=== PATIENT | female | born 1950 | race Caucasian/White ===

== ENCOUNTER 2017-08-20 19:15 | Observation (INO) | payer MEDICARE ==
[2017-08-20 21:19] LABS: #Basophils 0.1 thou/uL (0.0-0.2); #Eosinphils 0.1 thou/uL (0.0-0.7); #Lymphocytes 2.4 thou/uL (1.20-3.40); #Monocytes 0.4 thou/uL (0.11-0.59); #Neutrophils 3.3 thou/uL (1.40-6.50); %Basophils 1.1 % (0.0-1.0); %Lymphocytes 38.4 % (21.0-51.0); %Monocytes 6.7 % (0.0-10.0); Hematocrit 40.6 % (36.0-47.0); Mean Platelet Volume 6.9 fL (7.4-10.4); White Blood Cell (WBC) Count 6.3 thou/uL (4.8-10.8)
--- NOTE | 2017-08-20 21:41 | RAD ---
RADIOGRAPH CHEST 1 VIEW: 08/20/17 HISTORY: 67-year-old female with acute chest pain. FINDINGS: There is hyperinflation of the lungs, consistent with COPD. The thoracic aorta is tortuous and ectat ic. There is no evidence of air space density, pneumothorax, or pulmonary edema. The lateral costop hrenic angles are sharp. There is no cardiomegaly. There are sternotomy wires. There is ACDF hardware in the cervical spine. IMPRESSION: 1) No acute pulmonary findings. 2) Emphysema. 3) Ectasia of thoracic aorta. jason foss POS: ESTEBAN
[2017-08-20 21:44] LABS: Troponin I Less than 0.010 ng/mL (< 0.028)
[2017-08-20] MEDS ORDERED: Nitroglycerin 2% Ointment 1 INCH/1 GM Packet ONE (21:52)
[2017-08-20 21:57] LABS: ALT (SGPT) 9 U/L (8-55); AST (SGOT) 19 U/L (5-34); Alkaline Phosphatase 50 U/L (40-150); Anion Gap 12 mmol/L (10-20); BUN (Urea Nitrogen) 12 mg/dL (9.8-20.1); Bilirubin, Total 0.3 mg/dL (0.2-1.2); CK (CPK) 86 U/L (29-168); Calc. Creatinine Clearance 0 mL/min (70-130); Calcium 8.7 mg/dL (7.8-10.44); Carbon Dioxide 28 mmol/L (23-31); Chloride 105 mmol/L (98-107); Estimated GFR-MDRD 86; Globulin 2.8 g/dL (2.4-3.5); Protein, Total 6.7 g/dL (6.0-8.3)
[2017-08-20 23:23] VITALS: BMI 24.5
[2017-08-20] MEDS ORDERED: Ondansetron HCl/PF 4 MG/2 ML Vial IVP PRN (23:44)
[2017-08-20] MEDS ORDERED: Ondansetron ODT 4 MG TAB SL PRN (23:44)
[2017-08-21 00:56] LABS: Troponin I Less than 0.010 ng/mL (< 0.028)
[2017-08-21] MEDS ORDERED: HYDROcodone/Acetaminophen 5/325 mg Tablet PO PRN (02:06)
--- NOTE | 2017-08-21 02:13 | PDOC.EVN ---
Event Note - Event Note Event Note: [id number] 1. CHEST PAIN 2. HTN 3. HPL plan: see orders
--- NOTE | 2017-08-21 03:22 | HP ---
DATE OF ADMISSION: 08/21/2017 CHIEF COMPLAINT: Chest pain. HISTORY OF PRESENT ILLNESS: Patient is a 67-year-old female with past medical history of hypertensio n, hyperlipidemia, now came to the ER complaining of chest pain. Chest pain started all of sudden [place] bsternal pressure kind of pain. No aggravating factors, no relieving factors. Denies any radiation. Denies any fever, denies any chills, denies any nausea, denies any vomiting, denies any dizziness, denies any dyspnea. Denies any palpations. Chest pain is moderate in intensity. PAST MEDICAL HISTORY: As per HPI. PAST SURGICAL HISTORY: , hysterectomy. SOCIAL HISTORY: Positive for smoking, denies alcohol, denies any drugs. MEDICATIONS: Reviewed. FAMILY HISTORY: Denies any heart problems. REVIEW OF SYSTEMS: Constitutional: Denies any fever, denies any chills. Eyes: Denies any vision p roblems. Ears: Denies any hearing loss. Neck: Denies any neck pain. Cardiovascular: Positive fo r chest pain. Respiratory: Denies any cough, denies any sputum production. Cranial nerve system: Denies syncope. All other systems are reviewed and are negative. PHYSICAL EXAMINATION: CONSTITUTIONAL/VITAL SIGNS: At the time of H&P performed, blood pressure is 158/70, temperature 98.2 , heart rate 74, respirations 24, pulse ox 97%. GENERAL: The patient appears comfortable. HEENT: Pupils are equal, round, and reactive. Anterior nares patent. Nose normal. Ears normal. T eeth intact. Tongue is moist. NECK: Supple, no JVD. CARDIOVASCULAR: S1, S2 present. Regular rate and rhythm, no murmurs, no rubs, no gallops. RESPIRATORY SYSTEM: No wheezing, no rhonchi. Breath sounds bilaterally. ABDOMEN: Soft, nontender, no guarding, no organomegaly, no masses felt. MUSCULOSKELETAL: No edema. INTEGUMENT: No rashes seen. PSYCHIATRIC: Mood appropriate at this time. LABORATORY DATA: At the time of H and p performed white count 6.3, hemoglobin 13.5, platelet count i s 246, PTT 24.6. BMP showed sodium 141, potassium 4.4, chloride 105, CO2 is 20, BUN 12, creatinine 0 .68. Troponin less than 0.010, albumin 3.9. ASSESSMENT AND PLAN: The patient is a 67-year-old female. 1. Chest pain. Need to rule out Cardiac etiology. Plan to check cardiac enzymes. Plan to monitor the patient closely. 2. Hypertension. Monitor blood pressures. Continue home blood pressure meds. 3. History of hyperlipidemia. Continue statins. The case was discussed in detail with the patient. Patient is FULL CODE.
[2017-08-21] MEDS: Sodium Chloride 0.9% 1,000 ML IV SCH ×2 (04:09→17:02)
[2017-08-21] MEDS: Levothyroxine Sodium 100 MCG TAB PO SCH (04:21)
[2017-08-21 04:44] LABS: #Eosinphils 0.1 thou/uL (0.0-0.7); #Lymphocytes 2.1 thou/uL (1.20-3.40); #Monocytes 0.5 thou/uL (0.11-0.59); #Neutrophils 3.2 thou/uL (1.40-6.50); %Basophils 0.5 % (0.0-1.0); %Lymphocytes 35.1 % (21.0-51.0); %Monocytes 8.7 % (0.0-10.0); Hematocrit 41.7 % (36.0-47.0); Mean Platelet Volume 7.1 fL (7.4-10.4)
[2017-08-21 04:53] LABS: Anion Gap 10 mmol/L (10-20); BUN (Urea Nitrogen) 11 mg/dL (9.8-20.1); Calc. Creatinine Clearance 80 mL/min (70-130); Calcium 9.2 mg/dL (7.8-10.44); Carbon Dioxide 28 mmol/L (23-31); Chloride 107 mmol/L (98-107); Estimated GFR-MDRD 88
[2017-08-21 04:58] LABS: Troponin I Less than 0.010 ng/mL (< 0.028)
[2017-08-21] MEDS: Aspirin 325 MG TAB PO SCH (09:03)
[2017-08-21] MEDS: Metoprolol Tartrate 25 MG TAB PO SCH ×2 (09:04→19:47)
[2017-08-21] MEDS: Famotidine 20 MG TAB PO SCH ×2 (09:04→19:46)
[2017-08-21] MEDS: Heparin 5,000 UNITS/ML VIAL SC SCH ×3 (09:05→19:46)
[2017-08-21] MEDS: Acetaminophen 325 MG TAB PO PRN ×2 (09:47→17:04)
--- NOTE | 2017-08-21 20:20 | PRG ---
DATE OF SERVICE: 08/21/2017 SUBJECTIVE: The patient is seen and examined at bedside. She is doing well. She does not have ches t pain anymore. OBJECTIVE: VITAL SIGNS: Blood pressure is 96/49, pulse is 86, temperature 98.1, respiratory rate is 20, and O2 saturation is 94% on 2 liters. HEENT: Head is atraumatic, normocephalic. Eyes are PERRLA. Sclerae nonicteric. NECK: Supple. No JVD. LUNGS: Clear. HEART: S1, S2 normal, no S3, no S4. ABDOMEN: Soft and nontender. EXTREMITIES: No clubbing, cyanosis or edema. NEUROLOGIC: Examination is intact. LABORATORY DATA: Showed white count of 6.0, hemoglobin 13.2, hematocrit 41.7, platelet count is 217. Normal chemistry. Three sets of troponin I normal. IMPRESSION: 1. Chest pain in the setting of a patient with history of coronary artery disease and multiple stent placements. Troponins are normal. EKG showed some flipped T waves in V1 and V2 and otherwise was n ormal. [employer] is coming to make decision about the next step, whether she can be released home and follow up with her photogrammetric surveyor, Dr. Hardy, or if he will do cardiac catheterization with r adionuclide stress test. 2. Hypertension, chronic, stable. 3. History of hyperlipidemia, on statins.
[2017-08-21] MEDS ORDERED: traZODone HCl 50 MG TAB PO SCH (21:00)
[2017-08-22] MEDS: Sodium Chloride 0.9% 1,000 ML IV SCH (04:24)
[2017-08-22] MEDS: Levothyroxine Sodium 100 MCG TAB PO SCH (04:25)
--- NOTE | 2017-08-22 07:39 | CON ---
DATE OF CONSULTATION: 08/21/2017 HISTORY: Eloina Beltran is a 67-year-old white female, patient of Dr. Hardy. She has undergone CABG a nd multiple stent placements and continues to have episodes of frequent chest pains with multiple adm issions, multiple cardiac catheterizations. It has been felt that she was not a candidate for reoper ation due to very small vessels. It has also been felt that she is not a candidate for further inter ventions unless she has progression of disease in her saphenous vein graft. Her [place] vessels are v teddy small. Last night, she was sitting and had onset of central chest pressure. The pain was not pleuritic in n ature. It lasted 3-4 hours. She also has had some intermittent pain today. I noted that previously she had been on Ranexa 1000 mg b.i.d. when she was last discharged and when I asked her about that m edication, she told me she has never been on Ranexa. PAST MEDICAL HISTORY: Coronary artery disease, hypercholesterolemia, hypertension. She is unable to take statins due to muscle pain. She also has depression, GERD. PAST SURGICAL HISTORY: C-spine surgery, CABG, laparoscopic cholecystectomy, Mario fundoplication, a ppendectomy, and bilateral oophorectomy. HOME MEDICATIONS: Include aspirin 325 daily, Dulcolax 10 daily, levothyroxine 1000 daily, metoprolol 25 b.i.d., pantoprazole 20 daily, Zoloft 100 daily, trazodone 300 mg at bedtime. ALLERGIES: PROZAC, PENICILLIN, BETADINE, VIOXX, CELEBREX, STADOL. SOCIAL HISTORY: Smoked in the past, but no longer smokes. FAMILY HISTORY: Unremarkable. REVIEW OF SYSTEMS: A 12-point review of systems is remarkable. PHYSICAL EXAMINATION: VITAL SIGNS: 137/63, pulse 77. HEENT: PERRL. NECK: Supple. LUNGS: Chest is clear. CARDIAC: S1 and S2 are normal, without any S3, S4, or murmurs. ABDOMEN: Normal bowel sounds, without tenderness or organomegaly. EXTREMITIES: Revealed no clubbing, cyanosis, or edema. NEUROLOGIC: Grossly intact. MUSCULOSKELETAL: Revealed no palpable chest wall tenderness. LABORATORY DATA: EKG revealed normal sinus rhythm with probable septal infarct, no acute changes. H emoglobin 13.2, hematocrit 41.7, white count 6000, platelets 217,000. Sodium 141, potassium 3.8, chl oride 107, carbon dioxide 28, BUN 11, creatinine 0.69. Cardiac enzymes x3 are normal. IMPRESSION: 1. Atypical chest discomfort with 3-4 hours of chest pain with totally normal cardiac enzymes. 2. Status post coronary artery bypass graft and multiple stent implantation. When she was last disc harged, she was on Ranexa 1000 b.i.d., but she is quite adamant that she has never taken Ranexa in th e past. 3. Hypertension. 4. Hyperlipidemia, unable to take statins. 5. Former smoker. 6. Depression. PLAN: With 3-4 hours of continuous chest discomfort and negative cardiac enzymes, I am not even cert ain that this was cardiac pain. She will be restarted on Ranexa 500 mg b.i.d. and is still somewhat unclear to me that she was not taking this. It is not felt that catheterization would be beneficial at this time.
[2017-08-22] MEDS: Acetaminophen 325 MG TAB PO PRN (08:06)
[2017-08-22] MEDS: Heparin 5,000 UNITS/ML VIAL SC SCH (08:06)
[2017-08-22] MEDS: Aspirin 325 MG TAB PO SCH (08:06)
[2017-08-22] MEDS: Famotidine 20 MG TAB PO SCH (08:06)
[2017-08-22] MEDS: Metoprolol Tartrate 25 MG TAB PO SCH (08:06)
[2017-08-22 08:47] VITALS: BP 134/63; TEMP 98.2
--- NOTE | 2017-08-22 17:52 | DIS ---
DATE OF ADMISSION: 08/20/2017 DATE OF DISCHARGE: 08/22/2017 CONSULTANTS: Dr. Ray Samuel, Cardiology Service. FINAL DISCHARGE DIAGNOSES: 1. Chest pain, acute coronary syndrome was ruled out. 2. History of hyperlipidemia, on statin. 3. Hypertension, chronic, stable. 4. Coronary artery disease and status post multiple stent placements. HOSPITAL COURSE: The patient was a 67-year-old female who was admitted to the hospital wit h chest pain. She has a history of hypertension and hyperlipidemia. The onset of chest pain was [place] den. The pain was substernal, pressure kind of, without any aggravating factors without radiation. She denied any fever, chills, nausea, vomiting or diarrhea, dyspnea or palpitations. The chest pain was moderate in intensity. She was evaluated by emergency room when she was found to have white coun t of 6.3, hemoglobin 13.5, platelet count was 246, PTT 24.6. BMP showed sodium of 141, potassium 4.4 , chloride 105, CO2 20, BUN 12, creatinine 0.68. Troponin I was less than 0.010. The patient got ad mitted to the observation unit. She had additional 2 sets of cardiac enzymes which came back negativ e. Her EKG did not show any significant changes. The patient was seen by Dr. Samuel for Cardiolog y evaluation. He did not think that this was cardiac in nature, but he restarted her on Ranexa 500 m g twice a day and apparently her chest pain improved significantly to the point that she does not hav e any complaints to offer today. She is doing well. She is tolerating food. She is able to ambulat e without any discomfort. PHYSICAL EXAMINATION: VITAL SIGNS: Her blood pressure is 134/63, pulse is 68, temperature is 98.2, respiratory rate is 20, O2 saturation is 92%. LUNGS: Somewhat emphysematous. HEART: S1, S2 normal. No S3, no S4, no any murmur. ABDOMEN: Soft, nontender, bowel sounds are present, no organomegaly. The patient is discharged home on heart healthy diet. ACTIVITY: As tolerated. Her medications at the time of discharge were ranolazine which is Ranexa 500 mg twice a day. She maya l have a prescription for that. She will continue on aspirin 325 mg once a day, levothyroxine 100 mc g once a day, metoprolol 25 mg twice a day, pantoprazole 20 mg daily, sertraline 100 mg daily, [place] 10/325 mg 2 tablets q.6 hours p.r.n. as needed for the pain and Dulcolax 10 mg p.o. daily p.r.n. as n eeded. Also, she will continue her trazodone 100 mg tablets 2 tablets at bedtime. She will follow u p with Dr. Hardy in 1 week, her balloon seller, for further evaluation and she was seen on exam before s he is discharged and discharge time is less than 30 minutes.
--- NOTE | 2017-09-04 15:00 | EKG ---
Test Reason : CP Blood Pressure : / mmHG Vent. Rate : 060 BPM Atrial Rate : 060 BPM P-R Int : 156 ms QRS Dur : 078 ms QT Int : 432 ms P-R-T Axes : 037 011 027 degrees QTc Int : 432 ms Normal sinus rhythm Possible Left atrial enlargement Septal infarct , age undetermined Abnormal ECG Confirmed by IMMANUEL ORTEGA D.O. ([id number]), news editor TRUMAN DIALLO ([id number]) on 09/04/2017 2:59:29 PM Referred By: SHANNON Confirmed By:IMMANUEL ORTEGA D.O.
--- NOTE | 2017-09-04 15:13 | EKG ---
Test Reason : Blood Pressure : / mmHG Vent. Rate : 076 BPM Atrial Rate : 076 BPM P-R Int : 148 ms QRS Dur : 074 ms QT Int : 382 ms P-R-T Axes : 048 016 050 degrees QTc Int : 429 ms Normal sinus rhythm Possible Left atrial enlargement Septal infarct , age undetermined No STEMI Abnormal ECG Confirmed by IMMANUEL ORTEGA D.O. ([id number]), newspaper copy editor TRUMAN DIALLO ([id number]) on 09/04/2017 3:12:50 PM Referred By: Confirmed By:IMMANUEL ORTEGA D.O.
== END 2017-08-22 12:04 | disposition home or self-care (01) ==
LOC: ERS 19:15 → 2SW 21:55
PROVIDERS: ADMIT Internal Medicine; ATTEND Internal Medicine
DX: R07.89 Other chest pain (principal); E78.5 Hyperlipidemia, unspecified; I10 Essential (primary) hypertension; I25.10 Atherosclerotic heart disease of native coronary artery without angina pectoris; F17.200 Nicotine dependence, unspecified, uncomplicated; Z88.0 Allergy status to penicillin; Z88.1 Allergy status to other antibiotic agents; Z88.8 Allergy status to other drugs, medicaments and biological substances; Z91.041 Radiographic dye allergy status; Z91.048 Other nonmedicinal substance allergy status; Z90.710 Acquired absence of both cervix and uterus; Z95.5 Presence of coronary angioplasty implant and graft; Z98.890 Other specified postprocedural states
CPT/HCPCS: 71010; 80048; 80053; 82550; 82553; 83880; 84484 ×3; 85025 ×2; 85730; 93005; 96360; 96361 ×2; 99285; 99406; G0378; 36415; A4216; J1644

== ENCOUNTER 2017-09-02 08:53 | Inpatient (IN) | payer MEDICARE ==
[2017-09-02] MEDS ORDERED: Hydrocortisone Sod Succ/PF 100 mg/2 ml Vial ONE (09:18)
[2017-09-02] MEDS ORDERED: Heparin 10,000 UNITS/1 ML VIAL ONE (09:25)
[2017-09-02] MEDS ORDERED: Fentanyl 100 MCG/2 ML VIAL ONE ×2 (09:26→10:09)
[2017-09-02] MEDS ORDERED: Nitroglycerin 100MG/250ML BOT 250 ML ONE (09:44)
[2017-09-02] MEDS ORDERED: Aggrastat 12.5 MG/250 ML 250 ML ONE (10:35)
[2017-09-02] MEDS ORDERED: Iopamidol 370 76% 100 ML VIAL ONE (11:27)
[2017-09-02] MEDS ORDERED: Iopamidol 370 76% 50 ML VIAL FS ONE (11:27)
[2017-09-02] MEDS ORDERED: Amlodipine 5 MG TAB PO SCH (12:15)
[2017-09-02] MEDS ORDERED: Lisinopril 20 MG TAB PO SCH (12:15)
[2017-09-02] MEDS: Nitroglycerin 2% Ointment 1 INCH/1 GM Packet TOP SCH ×2 (12:17→21:37)
[2017-09-02 12:36] VITALS: BMI 25.4
[2017-09-02] MEDS ORDERED: Sodium Chloride 0.9% 1,000 ML IV SCH ×2 (12:49→20:02)
[2017-09-02] MEDS ORDERED: TICAGRELOR 90 MG TABLET PO SCH ×2 (12:49→21:00)
[2017-09-02] MEDS ORDERED: Aggrastat 12.5 MG/250 ML 250 ML IVPB SCH (13:15)
[2017-09-02] MEDS ORDERED: Fentanyl 100 MCG/2 ML VIAL SLOW IVP SCH (14:00)
[2017-09-02] MEDS ORDERED: Ondansetron HCl/PF 4 MG/2 ML Vial IVP SCH (14:15)
--- NOTE | 2017-09-02 14:25 | EKG ---
Test Reason : POST PTCA/STENT-RCA Blood Pressure : / mmHG Vent. Rate : 059 BPM Atrial Rate : 059 BPM P-R Int : 160 ms QRS Dur : 074 ms QT Int : 428 ms P-R-T Axes : 061 028 083 degrees QTc Int : [address] elevation consider inferolateral injury or acute infarct * ACUTE OK * Consider right ventricular involvement in acute inferior infarct Abnormal ECG When compared with ECG of 20-AUG-2017 21:44, (Unconfirmed) Criteria for Septal infarct are no longer Present ST elevation now present in Inferior leads Confirmed by DR. Yuko ABBOTT ([id number]) on 09/02/2017 2:24:06 PM Referred By: CHERRY Confirmed By:DR. Yuko ABBOTT
--- NOTE | 2017-09-02 15:53 | HP ---
DATE OF SERVICE: 09/02/2017 REASON FOR ADMISSION: Acute myocardial infarction. HISTORY OF PRESENT ILLNESS: Ms. Eloina Beltran is a 67-year-old patient of Dr. Marco A Hardy. The patient has a history of multiple stent implantation and also previous bypass surgery. The patie nt states she had the onset of severe substernal pain and pain going across her chest, beginning this morning. An ambulance was called and she was brought in by helicopter with ongoing chest pain and S T elevation in the inferior leads. PAST MEDICAL HISTORY: She has had multiple stents implanted. Please see previous notes. Has had mu ltiple cardiac catheterizations and she also had bypass surgery. Last cardiac catheterization that I see in the chart was 07/26/2014, found to have a patent internal mammary to the LAD diffusely diseas ed graft to the diagonal and patent stents in the right coronary artery. MEDICINES AT HOME: 1. She is taking aspirin. 2. Metoprolol, unknown dose. ALLERGIES: Intolerant to STATINS, some muscle pain. SOCIAL HISTORY: She said she continues to smoke. REVIEW OF SYSTEMS: Constitutional: No significant weight gain or loss. Vision: No changes. Heari ng: No changes. Pulmonary: Positive for shortness of breath. Cardiac: Positive for severe chest pain. Gastrointestinal: Positive for nausea and vomiting. Musculoskeletal: No unusual joint pains . Genitourinary: No burning with urination. PHYSICAL EXAMINATION: GENERAL: A critically ill-appearing elderly woman. VITAL SIGNS: Blood pressure 160/80, pulse 70s. EYES: Sclerae nonicteric. Mouth mucous membranes moist. NECK: Supple, no lymphadenopathy. LUNGS: Clear, no wheezing, rales or rhonchi. CARDIOVASCULAR: Normal S1, normal S2. There is no murmur, rub or gallop. ABDOMEN: Soft, nontender, no hepatosplenomegaly. EXTREMITIES: Warm, dry, no clubbing, cyanosis or edema. HEMATOLOGIC: No unusual bruising. SKIN: Warm and dry. LABORATORY AND X-RAY FINDINGS: EKG showed severe ST elevation in the inferior leads. ASSESSMENT: 1. Acute inferior myocardial infarction. 2. Multiple interventions and stent implantation in the past as outlined in the chart. PLAN: Proceed directly to the cardiac catheterization lab. The patient understood risk of stroke, h eart attack, iodine allergy, loss of blood supply to the leg or kidney. She understood and wished to proceed.
[2017-09-02] MEDS ORDERED: Fentanyl 100 MCG/2 ML VIAL SLOW IVP PRN (19:59)
[2017-09-02] MEDS ORDERED: HYDROcodone/Acetaminophen 10/325 mg Tablet PO PRN (20:00)
[2017-09-02] MEDS ORDERED: Aspirin 81 mg Enteric Coated Tablet PO SCH (20:15)
[2017-09-02] MEDS: Ondansetron HCl/PF 4 MG/2 ML Vial IVP PRN (20:22)
[2017-09-02] MEDS ORDERED: Carvedilol 3.125 MG TAB PO SCH (21:00)
[2017-09-02] MEDS: TICAGRELOR 90 MG TABLET PO SCH (21:37)
[2017-09-02] MEDS: traZODone HCl 50 MG TAB PO PRN (23:25)
[2017-09-03 04:40] LABS: #Eosinphils 0.1 thou/uL (0.0-0.7); #Lymphocytes 0.7 thou/uL (1.20-3.40); #Monocytes 0.3 thou/uL (0.11-0.59); #Neutrophils 5.5 thou/uL (1.40-6.50); %Basophils 0.3 % (0.0-1.0); %Eosinophils 0.8 % (0.0-10.0); %Lymphocytes 10.1 % (21.0-51.0); %Monocytes 4.4 % (0.0-10.0); %Neutrophils 84.4 % (42.0-75.0); Hemoglobin 12.7 g/dL (12.0-16.0); Mean Corpuscular HGB CONC 31.4 g/dL (32.0-36.0); Mean Platelet Volume 7.7 fL (7.4-10.4); Platelet Count 208 thou/uL (130-400); Red Blood Cell (RBC) Count 3.97 mill/uL (4.20-5.40); White Blood Cell (WBC) Count 6.5 thou/uL (4.8-10.8)
[2017-09-03] MEDS: Nitroglycerin 2% Ointment 1 INCH/1 GM Packet TOP SCH ×3 (05:31→22:04)
[2017-09-03] MEDS: Levothyroxine Sodium 100 MCG TAB PO SCH (05:31)
--- NOTE | 2017-09-03 08:22 | PDOC.CTH ---
<Jael Mcdowell - Last Filed: 09/03/17 08:18> Cardiology Progress Note - Subjective The pt seen and examined. No overnight events. No cardiac complaints. She was already up to chair this AM without any difficulties. - Objective Vital Signs Temp Pulse Resp Pulse Ox 09/03/17 07:42 98.3 F 72 18 96 09/03/17 03:00 98 F 09/02/17 23:00 98 F Admit Weight 143 lb 8.335 oz Weight 143 lb 8.335 oz 09/02/17 09/03/17 09/04/17 06:59 06:59 06:59 Intake Total 2495 Output Total 1175 Balance 1320 - Physical Examination General/Neuro: alert & oriented x3 Neck: no JVD present Lungs: CTA Heart: RRR Abdomen: soft Extremities: other: (No edema; about 1.5cm diameter hematoma@Rt fem; no mass to palpate) - Telemetry Telemetry Rhythm: SR - Labs Result Diagrams: 09/03/17 03:25 Troponin/CKMB Troponin I 10.800 ng/mL (< 0.028) H* 09/02/17 20:50 - Assessment/Plan 1. CAD w/ Hx of CABG in 2002 and multiple stents - S/p Stent x2 on 09/02/17; Stable; Start Coreg 3.125mg PO BID; on ASA and Brilinta; will check CMP tomorrow AM 2. HTN - start BBlocker; will adjust BP med as needed 3. Hyperlipidemia - The pt cannot tolerate Statin med due to myalgia; discussed with the pt about injectable cholesterol med 4. Current smoker - Smoking cessation education given to the pt MAR reviewed * Ok to tx to tele Review of Systems - Review of Systems Constitutional: reports: no symptoms reported EENTM: reports: no symptoms reported Respiratory: reports: no symptoms reported Cardiac (ROS): reports: no symptoms reported ABD/GI: reports: no symptoms reported : reports: no symptoms reported Musculoskeletal: reports: no symptoms reported Skin: reports: no symptoms reported <Reuben Hardy - Last Filed: 09/03/17 15:41> Cardiology Progress Note - Objective Vital Signs Temp Pulse Resp BP BP Pulse Ox 09/03/17 12:00 98.5 F 75 16 123/64 94 L 09/03/17 08:36 72 120/55 L 09/03/17 07:42 98.3 F 72 18 96 09/03/17 07:00 98 F Admit Weight 143 lb 8.335 oz Weight 143 lb 8.335 oz 09/02/17 09/03/17 09/04/17 06:59 06:59 06:59 Intake Total 2495 350 Output Total 1175 250 Balance 1320 100 - Labs Result Diagrams: 09/03/17 03:25 Troponin/CKMB CK-MB (CK-2) 19.8 ng/mL (0-6.6) H* 09/03/17 14:29 Troponin I 8.410 ng/mL (< 0.028) H* 09/03/17 14:29 - Assessment/Plan Pt. seen and eval. by me. I agree with the A/P by the HAIRSPRING ASSEMBLER. Chest clear,RRR. Prob. minimal damage with [place] yesterday. Peak Troponin I was 10. Continue present meds. We will see if she can start Repatha or Praluent for the elevated LDL cholesterol.
[2017-09-03] MEDS: TICAGRELOR 90 MG TABLET PO SCH ×2 (08:35→22:04)
[2017-09-03] MEDS: Lisinopril 20 MG TAB PO SCH (08:36)
[2017-09-03] MEDS: Amlodipine 5 MG TAB PO SCH (08:36)
[2017-09-03] MEDS: Carvedilol 3.125 MG TAB PO SCH ×2 (08:43→17:42)
[2017-09-03] MEDS ORDERED: Losartan 25 MG TAB PO SCH (09:00)
[2017-09-03] MEDS ORDERED: Lisinopril 20 MG TAB PO SCH (09:00)
[2017-09-03] MEDS: Ondansetron HCl/PF 4 MG/2 ML Vial IVP PRN (14:11)
[2017-09-03 15:19] LABS: CKMB 19.8 ng/mL (0-6.6)
--- NOTE | 2017-09-03 16:59 | EKG ---
Test Reason : Blood Pressure : / mmHG Vent. Rate : 055 BPM Atrial Rate : 055 BPM P-R Int : 156 ms QRS Dur : 072 ms QT Int : 442 ms P-R-T Axes : 049 019 053 degrees QTc Int : 422 ms Sinus bradycardia Otherwise normal ECG When compared with ECG of 02-SEP-2017 11:38, ST no longer elevated in Inferior leads Confirmed by DR. Yuko ABBOTT ([id number]) on 09/03/2017 4:59:37 PM Referred By: CHERRY Confirmed By:DR. Yuko ABBOTT
--- NOTE | 2017-09-03 17:02 | EKG ---
Test Reason : Blood Pressure : / mmHG Vent. Rate : 068 BPM Atrial Rate : 068 BPM P-R Int : 166 ms QRS Dur : 076 ms QT Int : 414 ms P-R-T Axes : 050 006 -31 degrees QTc Int : 440 ms Normal sinus rhythm Cannot rule out Inferior infarct , age undetermined Abnormal ECG When compared with ECG of 02-SEP-2017 15:34, (Unconfirmed) Minimal criteria for Inferior infarct are now Present T wave inversion now evident in Inferior leads Nonspecific T wave abnormality now evident in Lateral leads Confirmed by DR. Yuko ABBOTT ([id number]) on 09/03/2017 5:02:39 PM Referred By: CHERRY Confirmed By:DR. Yuko ABBOTT
[2017-09-03] MEDS: traZODone HCl 50 MG TAB PO PRN (22:05)
[2017-09-04] MEDS: Levothyroxine Sodium 100 MCG TAB PO SCH (05:36)
[2017-09-04] MEDS: Nitroglycerin 2% Ointment 1 INCH/1 GM Packet TOP SCH ×3 (05:36→21:49)
[2017-09-04 05:59] LABS: ALT (SGPT) 13 U/L (8-55); AST (SGOT) 41 U/L (5-34); Albumin 3.2 g/dL (3.4-4.8); Alkaline Phosphatase 42 U/L (40-150); Anion Gap 12 mmol/L (10-20); BUN (Urea Nitrogen) 7 mg/dL (9.8-20.1); Bilirubin, Total 0.2 mg/dL (0.2-1.2); Calc. Creatinine Clearance 85 mL/min (70-130); Calcium 8.7 mg/dL (7.8-10.44); Carbon Dioxide 24 mmol/L (23-31); Chloride 109 mmol/L (98-107); Estimated GFR-MDRD Greater than 90; Globulin 2.5 g/dL (2.4-3.5); Glucose 86 mg/dL (80-115); Protein, Total 5.7 g/dL (6.0-8.3); Sodium 141 mmol/L (136-145)
[2017-09-04 06:05] LABS: Critical Call Chem Troponin I RESULT DECREASING; Troponin I 5.685 ng/mL (< 0.028)
[2017-09-04] MEDS: Carvedilol 3.125 MG TAB PO SCH ×2 (08:51→17:34)
[2017-09-04] MEDS: TICAGRELOR 90 MG TABLET PO SCH ×2 (08:52→20:55)
[2017-09-04] MEDS: Ondansetron HCl/PF 4 MG/2 ML Vial IVP PRN ×2 (10:00→16:14)
[2017-09-04] MEDS: Amlodipine 5 MG TAB PO SCH (10:44)
[2017-09-04] MEDS: Lisinopril 20 MG TAB PO SCH (12:12)
[2017-09-04] MEDS: Acetaminophen 325 MG TAB PO PRN ×2 (14:47→21:49)
[2017-09-04] MEDS: traZODone HCl 50 MG TAB PO PRN (20:55)
[2017-09-04] MEDS ORDERED: Lorazepam 2 MG/ML VIAL SLOW IVP SCH (21:00)
[2017-09-05] MEDS: Levothyroxine Sodium 100 MCG TAB PO SCH (05:29)
[2017-09-05] MEDS: Nitroglycerin 2% Ointment 1 INCH/1 GM Packet TOP SCH (05:29)
[2017-09-05] MEDS: TICAGRELOR 90 MG TABLET PO SCH (08:27)
[2017-09-05] MEDS: Carvedilol 3.125 MG TAB PO SCH (08:27)
[2017-09-05] MEDS ORDERED: Lisinopril 20 MG TAB PO SCH (09:00)
[2017-09-05] MEDS ORDERED: Lisinopril 5 MG TAB PO SCH (09:00)
--- NOTE | 2017-09-05 09:36 | PDOC.CTH ---
Cardiology Progress Note - Subjective The pt seen and examined. She had Sharp and heavy like CP to her Chest which radiated from Rt to Lt chest and numbness to her Lt shoulder; she denied any other cardiac complains during the episode. The pt reported that the pain improved with NTG patch. She denied any CP or numbness to her LUE at this moment. - Objective Vital Signs Temp Pulse Resp BP BP Pulse Ox 09/05/17 08:27 73 121/80 09/05/17 08:00 97.6 F 73 20 121/80 94 L 09/05/17 04:05 97.8 F 80 16 119/72 92 L 09/05/17 00:02 98.1 F 73 20 123/57 L 98 Admit Weight 143 lb 8.335 oz Weight 142 lb 8 oz 09/04/17 09/05/17 09/06/17 06:59 06:59 06:59 Intake Total 590 1875 Output Total 250 Balance 340 1875 - Physical Examination General/Neuro: alert & oriented x3 Neck: no JVD present Lungs: CTA Heart: RRR Abdomen: soft Extremities: other: (No edema) - Telemetry Telemetry Rhythm: SR - Labs Result Diagrams: 09/03/17 03:25 09/04/17 05:11 Troponin/CKMB CK-MB (CK-2) 19.8 ng/mL (0-6.6) H* 09/03/17 14:29 Troponin I 5.685 ng/mL (< 0.028) H* 09/04/17 05:11 - Assessment/Plan 1. CAD w/ Hx of CABG in 2002 and multiple stents - S/p Stent x2 on 09/02/17; No Chest pain with NTG patch; on BBlocker, ALYSSA, ASA, and Brilinta; cont. monitor on tele 2. HTN - stable with current medication; cont. monitor 3. Hyperlipidemia - The pt cannot tolerate Statin med due to myalgia; again discussed with the pt about injectable cholesterol med, but the pt concerned of the cost of the medication 4. Current smoker - Smoking cessation education given to the pt again today; however, at this moment, she does not want smoking cessation. MAR reviewed * From Cardiac standpoint, the pt is stable to discharge to home; The pt will f/ u with Dr Hardy' office within 1-2 wks and we will discuss more about injectable cholesterol medication. Discharge cardiac related med: BBlocker, ALYSSA, ASA, and Brilinta, no statin due to side effect Review of Systems - Review of Systems Constitutional: reports: no symptoms reported EENTM: reports: no symptoms reported Respiratory: reports: no symptoms reported Cardiac (ROS): reports: no symptoms reported ABD/GI: reports: no symptoms reported : reports: no symptoms reported Musculoskeletal: reports: no symptoms reported Skin: reports: no symptoms reported Neurological: reports: no symptoms reported
[2017-09-05] MEDS: Ondansetron HCl/PF 4 MG/2 ML Vial IVP PRN (11:21)
[2017-09-05 11:50] VITALS: TEMP 98.5
[2017-09-05 13:00] VITALS: BP 110/68
--- NOTE | 2017-09-06 00:07 | DIS ---
Jael Mcdowell PEDIATRIC ONCOLOGY NURSE, Dr. Hardy' nurse practitioner. DATE OF ADMISSION: 09/02/2017 DATE OF DISCHARGE: 09/05/2017 DISCHARGE DISPOSITION: Home. PRIMARY DISCHARGE DIAGNOSIS: Acute inferior myocardial infarction and multiple stent implantation. SECONDARY DISCHARGE DIAGNOSES: 1. Hypertension. 2. Hyperlipidemia. 3. Current smoker. PRIMARY PROCEDURE: Status post cardiac catheterization with PCI x2 on 2016. DISCHARGE MEDICATIONS: Carvedilol 3.125 mg twice a day, lisinopril 5 mg 1 tablet once a day, nitroglycerin paste one inch daily (12 hours at the daytime and remove at the night), Brilinta 90 mg p.o. twice a day. CONTRAINDICATION OF THE MEDICATION: None. CODE STATUS: FULL CODE. DISCHARGE PLAN: The patient will follow up with Dr. Hardy' office within 1-2 weeks. HOSPITAL COURSE: Ms. Beltran is a 67-year-old female with a significant history of multiple stent implantations and also previous bypass surgery. The patient presented to the emergency department due to severe substernal pain, which radiated to left upper extremities. The patient underwent cardiac catheterization and PCI x2 on 09/02/2017. After the stent placements, the patient complained of intermediate chest pain/discomfort to her left chest and numbness to the bilateral arms, which improved by nitroglycerin paste. The patient will be discharged with nitroglycerin paste, which she requires 12 hours in the daytime and removed at night. The patient was strongly recommended smoking cessation due to multiple history of stents and chest discomfort, and follow up with her primary care doctor and also Dr. Hardy' office as instructed. The patient was seen and examined at the bedside today. Please see our progress note from today for further details. MTDD
== END 2017-09-05 14:21 | disposition home or self-care (01) | DRG 247 ==
LOC: CCL 08:53 → CCU 11:39 → 2SE 09-03 09:53
PROVIDERS: ADMIT Internal Medicine Cardiovascular Disease; ATTEND Internal Medicine Cardiovascular Disease
PROC: 027035Z Dilation of Coronary Artery, One Artery with Two Drug-eluting Intraluminal Devices, Percutaneous Approach (ICD-10-PCS; principal; 2017-09-02)
PROC: B240ZZ3 Ultrasonography of Single Coronary Artery, Intravascular (ICD-10-PCS; 2017-09-02)
PROC: 4A023N7 Measurement of Cardiac Sampling and Pressure, Left Heart, Percutaneous Approach (ICD-10-PCS; 2017-09-02)
PROC: B2121ZZ Fluoroscopy of Single Coronary Artery Bypass Graft using Low Osmolar Contrast (ICD-10-PCS; 2017-09-02)
PROC: B2181ZZ Fluoroscopy of Left Internal Mammary Bypass Graft using Low Osmolar Contrast (ICD-10-PCS; 2017-09-02)
PROC: B2111ZZ Fluoroscopy of Multiple Coronary Arteries using Low Osmolar Contrast (ICD-10-PCS; 2017-09-02)
PROC: B2151ZZ Fluoroscopy of Left Heart using Low Osmolar Contrast (ICD-10-PCS; 2017-09-02)
PROC: 3E033PZ Introduction of Platelet Inhibitor into Peripheral Vein, Percutaneous Approach (ICD-10-PCS; 2017-09-02)
DX: I21.11 ST elevation (STEMI) myocardial infarction involving right coronary artery (principal); I25.810 Atherosclerosis of coronary artery bypass graft(s) without angina pectoris; Z95.1 Presence of aortocoronary bypass graft; I25.10 Atherosclerotic heart disease of native coronary artery without angina pectoris; Z95.5 Presence of coronary angioplasty implant and graft; I10 Essential (primary) hypertension; E78.5 Hyperlipidemia, unspecified; F17.210 Nicotine dependence, cigarettes, uncomplicated
CPT/HCPCS: 36415; 37212; 76942; 80053; 82553; 84484; 85025; 92928; 92978; 93005; 93010; 93459; 93798; C1753; C1769; C1874; C1887; C9600; J1644; J1720; J2060; J2405; J3010; J3246

== ENCOUNTER 2021-06-17 19:56 | Inpatient (IN) | payer MEDICARE ==
[~2021-06-17 19:56] MED LIST: Iopamidol-370 76% 500 ML 1 ML ONE
[2021-06-17 21:08] LABS: Hemoglobin 13.8 g/dL (12.0-16.0); Mean Corpuscular HGB CONC 32.5 g/dL (32.0-36.0); Mean Corpuscular Hemoglobin 32.9 pg (27.0-31.0); Mean Platelet Volume 7.8 fL (7.4-10.4); Platelet Count 323 thou/uL (130-400); RBC Distribution Width 12.7 % (11.5-14.5); Red Blood Cell (RBC) Count 4.19 mill/uL (4.20-5.40); White Blood Cell (WBC) Count 18.5 thou/uL (4.8-10.8)
[2021-06-17 21:31] LABS: Band 19 % (5-11); Lymphocytes 9 % (21-51); MDiff Complete? YES; Monocytes 4 % (0-10); Neutrophil 68 % (42-75)
[2021-06-17 21:47] LABS: CKMB 0.8 ng/mL (0-6.6)
[2021-06-17] MEDS ORDERED: cefTRIAXone\\ROCEPHIN 2 GM VIAL ONE (21:50)
[2021-06-17] MEDS ORDERED: Ondansetron ODT 4 MG TAB ONE (21:50)
[2021-06-17 22:50] LABS: Albumin 2.8 g/dL (3.4-4.8)
[2021-06-17 22:51] LABS: Chloride 97 mmol/L (98-107); Potassium 3.7 mmol/L (3.5-5.1); Sodium 140 mmol/L (136-145)
[2021-06-17 22:52] LABS: Calcium 8.6 mg/dL (7.8-10.44); Glucose 98 mg/dL (83-110)
[2021-06-17 22:53] LABS: Globulin 3.5 g/dL (2.4-3.5); Protein, Total 6.3 g/dL (5.8-8.1)
[2021-06-17 22:54] LABS: Anion Gap 17 mmol/L (10-20); Bilirubin, Total 0.4 mg/dL (0.2-1.2); Carbon Dioxide 30 mmol/L (23-31)
[2021-06-17 22:55] LABS: Alkaline Phosphatase 84 U/L (40-110)
[2021-06-17 22:56] LABS: Calc. Creatinine Clearance 0 mL/min (70-130)
[2021-06-17 22:57] LABS: BUN (Urea Nitrogen) 17 mg/dL (9.8-20.1)
[2021-06-17 22:58] LABS: ALT (SGPT) 15 U/L (8-55); AST (SGOT) 32 U/L (5-34)
[2021-06-17] MEDS ORDERED: Enoxaparin Sodium 60 MG/0.6 ML SYRINGE ONE (23:05)
[2021-06-17] MEDS ORDERED: Diltiazem 125 MG/25 ML ONE (23:06)
[2021-06-17 23:09] LABS: SARS-CoV-2 NAA Rapid Test Not Detected (NotDetected)
[2021-06-17 23:40] LABS: Bacteria/HPF 4+ HPF (None Seen); Bilirubin Negative (Negative); Blood, Urine 1+ (Negative); Clarity Turbid (Clear); Glucose, Urine (Dipstick) Normal (Negative); Ketone, Urine Negative (Negative); Leukocyte 75 Leu/uL (Negative); Nitrite Negative (Negative); Protein, Urine (Dipstick) 100 mg/dL (Neg-Trace); Specific Gravity, Urine 1.026 (1.002-1.036); Squamous Epithelial 0-3 HPF (0-3); pH, Urine 5.5 (5.0-9.0)
[2021-06-18] MEDS ORDERED: Ondansetron ODT 4 MG TAB PO PRN (00:16)
[2021-06-18] MEDS ORDERED: Acetaminophen 650 MG Suppository PR PRN (00:16)
[2021-06-18] MEDS ORDERED: Acetaminophen 325 MG TAB PO PRN (00:16)
[2021-06-18] MEDS ORDERED: Ondansetron PF 4 MG/2 ML Vial IVP PRN (00:16)
[2021-06-18 00:17] LABS: Lactic Acid 1.8 mmol/L (0.5-2.2)
[2021-06-18 00:27] LABS: Troponin I Less than 0.010 ng/mL (< 0.028)
[2021-06-18] MEDS ORDERED: Aspirin Chewable 81 MG TAB PO SCH (01:00)
[2021-06-18] MEDS ORDERED: Diltiazem 125 MG in Sodium Chloride 0.9% 100 ML IVPB SCH (01:45)
[2021-06-18] MEDS ORDERED: methylPREDNISolone Sod Succ 40 MG VIAL IVP SCH (02:30)
[2021-06-18] MEDS ORDERED: Aspirin Chewable 81 MG TAB ONE (03:07)
[2021-06-18 03:18] LABS: #Lymphocytes 0.8 thou/uL (1.20-3.40); #Monocytes 0.7 thou/uL (0.11-0.59); #Neutrophils 17.4 thou/uL (1.40-6.50); %Eosinophils 0.1 % (0.0-10.0); %Lymphocytes 4.1 % (21.0-51.0); %Monocytes 3.9 % (0.0-10.0); %Neutrophils 91.9 % (42.0-75.0); Hemoglobin 11.9 g/dL (12.0-16.0); Mean Corpuscular HGB CONC 31.8 g/dL (32.0-36.0); Mean Corpuscular Hemoglobin 32.3 pg (27.0-31.0); Mean Platelet Volume 8.1 fL (7.4-10.4); Platelet Count 241 thou/uL (130-400); RBC Distribution Width 12.5 % (11.5-14.5); Red Blood Cell (RBC) Count 3.69 mill/uL (4.20-5.40)
[2021-06-18 03:43] LABS: Troponin I 0.011 ng/mL (< 0.028)
[2021-06-18 03:56] LABS: Anion Gap 18 mmol/L (10-20); BUN (Urea Nitrogen) 15 mg/dL (9.8-20.1); Calc. Creatinine Clearance 0 mL/min (70-130); Calcium 7.3 mg/dL (7.8-10.44); Carbon Dioxide 27 mmol/L (23-31); Chloride 101 mmol/L (98-107); Glucose 104 mg/dL (83-110); Potassium 3.7 mmol/L (3.5-5.1); Sodium 142 mmol/L (136-145)
[2021-06-18] MEDS: Aspirin Chewable 81 MG TAB PO SCH (08:26)
[2021-06-18] MEDS: methylPREDNISolone Sod Succ 40 MG VIAL IVP SCH (08:26)
[2021-06-18] MEDS ORDERED: FLU VACC QS2021-22(65YR UP)/PF 240 MCG/0.7 ML SYRINGE IM ONE (09:00)
[2021-06-18] MEDS ORDERED: Enoxaparin Sodium 40 MG/0.4 ML SYRINGE SC SCH (09:00)
[2021-06-18] MEDS ORDERED: Budesonide 0.25 MG/2 ML NEB INH SCH (13:00)
[2021-06-18] MEDS: Carvedilol 3.125 MG TAB PO SCH (17:10)
[2021-06-18] MEDS: Budesonide 0.25 MG/2 ML NEB INH SCH (18:25)
[2021-06-18] MEDS: Atorvastatin Calcium 40 MG TAB PO SCH (20:33)
[2021-06-18] MEDS: Donepezil HCl 5 MG TAB PO SCH (20:33)
[2021-06-18] MEDS: cefTRIAXone\\ROCEPHIN 1 GM in Sodium Chloride 0.9% 100 ML IVPB SCH (20:33)
[2021-06-18] MEDS: traZODone HCl 50 MG TAB PO SCH (20:34)
[2021-06-18] MEDS ORDERED: TRAZODONE HCL 100 MG PO SCH (21:00)
[2021-06-19 04:48] VITALS: BMI 23.9
[2021-06-19] MEDS: Clopidogrel Bisulfate 75 MG TAB PO SCH (08:38)
[2021-06-19] MEDS: methylPREDNISolone Sod Succ 40 MG VIAL IVP SCH ×3 (08:38→23:11)
[2021-06-19] MEDS: Levothyroxine Sodium 100 MCG TAB PO SCH (08:38)
[2021-06-19] MEDS: Aspirin Chewable 81 MG TAB PO SCH (08:38)
[2021-06-19] MEDS: Budesonide 0.25 MG/2 ML NEB INH SCH ×2 (09:02→18:52)
[2021-06-19] MEDS: Lisinopril 5 MG TAB PO SCH (10:06)
[2021-06-19] MEDS: Carvedilol 3.125 MG TAB PO SCH ×2 (10:06→17:41)
[2021-06-19] MEDS: traZODone HCl 50 MG TAB PO SCH (20:04)
[2021-06-19] MEDS: Atorvastatin Calcium 40 MG TAB PO SCH (20:05)
[2021-06-19] MEDS: cefTRIAXone\\ROCEPHIN 1 GM in Sodium Chloride 0.9% 100 ML IVPB SCH (20:05)
[2021-06-19] MEDS: Donepezil HCl 5 MG TAB PO SCH (20:05)
[2021-06-20] MEDS: methylPREDNISolone Sod Succ 40 MG VIAL IVP SCH ×2 (06:03→11:45)
[2021-06-20] MEDS: Budesonide 0.25 MG/2 ML NEB INH SCH ×2 (07:13→18:45)
[2021-06-20 07:53] LABS: Hemoglobin 13.3 g/dL (12.0-16.0); Mean Corpuscular HGB CONC 31.6 g/dL (32.0-36.0); Mean Corpuscular Hemoglobin 32.5 pg (27.0-31.0); Mean Platelet Volume 7.4 fL (7.4-10.4); Platelet Count 362 thou/uL (130-400); RBC Distribution Width 12.6 % (11.5-14.5); Red Blood Cell (RBC) Count 4.11 mill/uL (4.20-5.40); White Blood Cell (WBC) Count 13.8 thou/uL (4.8-10.8)
[2021-06-20 08:04] LABS: Anion Gap 15 mmol/L (10-20); BUN (Urea Nitrogen) 14 mg/dL (9.8-20.1); Calc. Creatinine Clearance 77 mL/min (70-130); Calcium 8.5 mg/dL (7.8-10.44); Carbon Dioxide 30 mmol/L (23-31); Chloride 98 mmol/L (98-107); Glucose 197 mg/dL (83-110); Sodium 139 mmol/L (136-145)
[2021-06-20 08:24] LABS: Band 4 % (5-11); Lymphocytes 4 % (21-51); MDiff Complete? YES; Macrocytosis SLIGHT = 6-15 cells (100X) (0-5/hpf); Monocytes 7 % (0-10); Neutrophil 85 % (42-75); Platelet Morphology Comment Appears Adequate; Polychromasia SLIGHT = 2-3 cells (100X) (0-2/hpf)
[2021-06-20] MEDS: Levothyroxine Sodium 100 MCG TAB PO SCH (08:35)
[2021-06-20] MEDS: Carvedilol 3.125 MG TAB PO SCH ×2 (08:35→16:26)
[2021-06-20] MEDS: Lisinopril 5 MG TAB PO SCH (08:36)
[2021-06-20] MEDS: Aspirin Chewable 81 MG TAB PO SCH (08:36)
[2021-06-20] MEDS: Clopidogrel Bisulfate 75 MG TAB PO SCH (08:36)
[2021-06-20] MEDS: traZODone HCl 50 MG TAB PO SCH (20:20)
[2021-06-20] MEDS: Donepezil HCl 5 MG TAB PO SCH (20:21)
[2021-06-20] MEDS: Cefuroxime Axetil 250 MG TAB PO SCH (20:21)
[2021-06-20] MEDS: Atorvastatin Calcium 40 MG TAB PO SCH (20:21)
[2021-06-20] MEDS: Bisacodyl 5 MG TAB PO PRN (20:28)
[2021-06-21 05:32] LABS: Anion Gap 14 mmol/L (10-20); BUN (Urea Nitrogen) 13 mg/dL (9.8-20.1); Calc. Creatinine Clearance 73 mL/min (70-130); Calcium 8.3 mg/dL (7.8-10.44); Carbon Dioxide 31 mmol/L (23-31); Chloride 96 mmol/L (98-107); Glucose 77 mg/dL (83-110); Potassium 4.3 mmol/L (3.5-5.1); Sodium 137 mmol/L (136-145)
[2021-06-21 07:46] LABS: #Eosinphils 0.1 thou/uL (0.0-0.7); #Lymphocytes 2.1 thou/uL (1.20-3.40); #Monocytes 0.9 thou/uL (0.11-0.59); #Neutrophils 8.5 thou/uL (1.40-6.50); %Basophils 0.1 % (0.0-1.0); %Eosinophils 0.6 % (0.0-10.0); %Lymphocytes 17.7 % (21.0-51.0); %Monocytes 7.8 % (0.0-10.0); %Neutrophils 73.7 % (42.0-75.0); Hemoglobin 13.7 g/dL (12.0-16.0); Mean Corpuscular HGB CONC 31.8 g/dL (32.0-36.0); Mean Corpuscular Hemoglobin 32.7 pg (27.0-31.0); Mean Platelet Volume 7.9 fL (7.4-10.4); Platelet Count 255 thou/uL (130-400); RBC Distribution Width 12.7 % (11.5-14.5); White Blood Cell (WBC) Count 11.6 thou/uL (4.8-10.8)
[2021-06-21] MEDS: Budesonide 0.25 MG/2 ML NEB INH SCH ×2 (08:04→19:39)
[2021-06-21] MEDS: Lisinopril 5 MG TAB PO SCH (08:06)
[2021-06-21] MEDS: Aspirin Chewable 81 MG TAB PO SCH (08:06)
[2021-06-21] MEDS: Clopidogrel Bisulfate 75 MG TAB PO SCH (08:07)
[2021-06-21] MEDS: Levothyroxine Sodium 100 MCG TAB PO SCH (08:07)
[2021-06-21] MEDS: predniSONE 20 MG TAB PO SCH (08:07)
[2021-06-21] MEDS: Carvedilol 3.125 MG TAB PO SCH ×2 (08:07→17:33)
[2021-06-21] MEDS: Cefuroxime Axetil 250 MG TAB PO SCH ×2 (08:12→20:18)
[2021-06-21] MEDS: Donepezil HCl 5 MG TAB PO SCH (20:18)
[2021-06-21] MEDS: traZODone HCl 50 MG TAB PO SCH (20:18)
[2021-06-21] MEDS: Atorvastatin Calcium 40 MG TAB PO SCH (20:18)
[2021-06-21] MEDS: Bisacodyl 5 MG TAB PO PRN (20:21)
[2021-06-22] MEDS: Budesonide 0.25 MG/2 ML NEB INH SCH ×2 (06:53→18:06)
[2021-06-22] MEDS: predniSONE 20 MG TAB PO SCH (08:33)
[2021-06-22] MEDS: Carvedilol 3.125 MG TAB PO SCH ×2 (08:33→15:59)
[2021-06-22] MEDS: Aspirin Chewable 81 MG TAB PO SCH (08:34)
[2021-06-22] MEDS: Cefuroxime Axetil 250 MG TAB PO SCH ×2 (08:34→20:39)
[2021-06-22] MEDS: Lisinopril 5 MG TAB PO SCH (08:35)
[2021-06-22] MEDS: Clopidogrel Bisulfate 75 MG TAB PO SCH (08:35)
[2021-06-22] MEDS: Levothyroxine Sodium 100 MCG TAB PO SCH (11:36)
[2021-06-22] MEDS: traZODone HCl 50 MG TAB PO SCH (20:39)
[2021-06-22] MEDS: Bisacodyl 5 MG TAB PO PRN (20:40)
[2021-06-22] MEDS: Atorvastatin Calcium 40 MG TAB PO SCH (20:40)
[2021-06-22] MEDS: Donepezil HCl 5 MG TAB PO SCH (20:40)
[2021-06-23] MEDS: Budesonide 0.25 MG/2 ML NEB INH SCH ×2 (08:06→18:01)
[2021-06-23] MEDS: Aspirin Chewable 81 MG TAB PO SCH (09:03)
[2021-06-23] MEDS: Lisinopril 5 MG TAB PO SCH (09:03)
[2021-06-23] MEDS: Carvedilol 3.125 MG TAB PO SCH ×2 (09:04→17:55)
[2021-06-23] MEDS: Clopidogrel Bisulfate 75 MG TAB PO SCH (09:04)
[2021-06-23] MEDS: Cefuroxime Axetil 250 MG TAB PO SCH ×2 (09:05→21:08)
[2021-06-23] MEDS: predniSONE 20 MG TAB PO SCH (09:05)
[2021-06-23] MEDS: Levothyroxine Sodium 100 MCG TAB PO SCH (11:08)
[2021-06-23] MEDS: Atorvastatin Calcium 40 MG TAB PO SCH (21:09)
[2021-06-23] MEDS: Donepezil HCl 5 MG TAB PO SCH (21:09)
[2021-06-23] MEDS: traZODone HCl 50 MG TAB PO SCH (21:09)
[2021-06-24] MEDS ORDERED: Levothyroxine Sodium 100 MCG TAB PO SCH (06:00)
[2021-06-24] MEDS: Budesonide 0.25 MG/2 ML NEB INH SCH (06:43)
[2021-06-24] MEDS: Cefuroxime Axetil 250 MG TAB PO SCH (08:10)
[2021-06-24] MEDS: Clopidogrel Bisulfate 75 MG TAB PO SCH (08:11)
[2021-06-24] MEDS: predniSONE 20 MG TAB PO SCH (08:11)
[2021-06-24] MEDS: Aspirin Chewable 81 MG TAB PO SCH (08:11)
[2021-06-24] MEDS: Lisinopril 5 MG TAB PO SCH (08:11)
[2021-06-24] MEDS: Carvedilol 3.125 MG TAB PO SCH ×2 (08:12→15:50)
[2021-06-24 15:50] VITALS: BP 116/59; TEMP 99.2
== END 2021-06-24 18:13 | disposition home or self-care (01) | DRG 196 ==
LOC: ERS 19:56 → ERHOLD 22:03 → 2SE 06-18 03:12 → OBSVTOIN 06-19 11:34 → 2SW 06-19 15:38
PROVIDERS: ADMIT Student in an Organized Health Care Education/Training Program; ATTEND Internal Medicine
DX: J84.9 Interstitial pulmonary disease, unspecified (principal); J96.01 Acute respiratory failure with hypoxia; E78.00 Pure hypercholesterolemia, unspecified; E03.9 Hypothyroidism, unspecified; K21.9 Gastro-esophageal reflux disease without esophagitis; E78.5 Hyperlipidemia, unspecified; Z20.822 Contact with and (suspected) exposure to COVID-19; J43.9 Emphysema, unspecified; I25.10 Atherosclerotic heart disease of native coronary artery without angina pectoris; F32.A Depression, unspecified; Z88.0 Allergy status to penicillin; Z88.8 Allergy status to other drugs, medicaments and biological substances; Z79.82 Long term (current) use of aspirin; Z79.899 Other long term (current) drug therapy; I25.2 Old myocardial infarction; Z95.1 Presence of aortocoronary bypass graft; Z90.710 Acquired absence of both cervix and uterus; Z90.49 Acquired absence of other specified parts of digestive tract; Z87.891 Personal history of nicotine dependence
CPT/HCPCS: 36415; 51701; 71045; 71275; 80048; 80053; 81003; 81015; 82553; 83605; 83880; 84484; 85025; 85379; 87040; 87070; 87077; 87086; 87186; 87205; 93005; 94640; 94760; 96365; 96366; 96372; 96375; 96376; G0378; J0696; J1650; J2405; J2920; J3490; J7512; J7620; J7626; Q0162; Q9967; U0002

== ENCOUNTER 2021-07-17 10:03 | Inpatient (IN) | payer MEDICARE ==
[2021-07-17 12:46] VITALS: BMI 25.5
[2021-07-17] MEDS ORDERED: Ondansetron ODT 4 MG TAB PO PRN (15:10)
[2021-07-17] MEDS ORDERED: Acetaminophen 325 MG TAB PO PRN (15:10)
[2021-07-17] MEDS ORDERED: Enoxaparin Sodium 40 MG/0.4 ML SYRINGE SC SCH (15:15)
[2021-07-17] MEDS ORDERED: Electrolyte Replacement Protocol 1 EACH FS SCH (15:45)
[2021-07-17] MEDS: Sodium Chloride 0.45% 1,000 ML IV SCH (15:48)
[2021-07-17] MEDS ORDERED: Metoprolol Tartrate 5 MG/5 ML VIAL ONE (16:21)
[2021-07-17] MEDS ORDERED: Adenosine 6 MG/2 ML VIAL ONE (16:26)
[2021-07-17 16:42] LABS: Actual Bicarbonate (HCO3a) 31.2 mEq/L (22-28); Base Excess (BEa) 4.6 mEq/L (-2.0 to +3.0); CO2 Tension 57.1 mmHg (35.0-45.0); Calcium, Ionized (arterial) 1.13 mmol/L (1.12-1.30); Carboxyhemoglobin (COHb) 0.4 gm% (0.0-3.0); Hemoglobin (Hb) 11.1 g/dL (12.0-16.0); O2 Tension (PaO2), arterial 63.8 mmHg (> 70.0); Potassium - ABG Lab 3.46 mmol/L (3.70-5.30); pH, Arterial 7.36 (7.35-7.45)
[2021-07-17 16:43] LABS: SARS-CoV-2 NAA Rapid Test Not Detected (NotDetected)
[2021-07-17] MEDS ORDERED: Ipratropium Oral Inhaler INH SCH ×2 (16:45→18:30)
[2021-07-17 16:47] LABS: Puncture Site LRA
[2021-07-17 16:51] LABS: Magnesium 2.2 mg/dL (1.6-2.6)
[2021-07-17 17:15] LABS: CKMB 1.4 ng/mL (0-6.6)
[2021-07-17] MEDS: VANCOMYCIN 1.25 GM/250 ML BAG 1.25 GM in Premix Bag 1 BAG IVPB SCH (17:29)
[2021-07-17] MEDS: methylPREDNISolone Sod Succ 40 MG VIAL IVP SCH (17:29)
[2021-07-17] MEDS: Carvedilol 3.125 MG TAB PO SCH (17:29)
[2021-07-17] MEDS: Ipratropium Bromide 2.5 ml Neb NEB SCH ×2 (19:02→23:15)
[2021-07-17] MEDS: Donepezil HCl 5 MG TAB PO SCH (22:01)
[2021-07-17] MEDS: Atorvastatin Calcium 40 MG TAB PO SCH (22:01)
[2021-07-18] MEDS: methylPREDNISolone Sod Succ 40 MG VIAL IVP SCH ×4 (00:04→17:27)
[2021-07-18] MEDS: Ipratropium Bromide 2.5 ml Neb NEB SCH ×6 (03:31→22:38)
[2021-07-18] MEDS: Sodium Chloride 0.45% 1,000 ML IV SCH ×3 (04:24→21:18)
[2021-07-18] MEDS: Levothyroxine Sodium 100 MCG TAB PO SCH (05:35)
[2021-07-18 06:38] LABS: Anion Gap 13 mmol/L (10-20); BUN (Urea Nitrogen) 13 mg/dL (9.8-20.1); Calc. Creatinine Clearance 99 mL/min (70-130); Calcium 8.4 mg/dL (7.8-10.44); Carbon Dioxide 26 mmol/L (23-31); Chloride 105 mmol/L (98-107); Glucose 115 mg/dL (83-110); Sodium 139 mmol/L (136-145)
[2021-07-18 08:52] LABS: #Eosinphils 0.1 thou/uL (0.0-0.7); #Lymphocytes 0.4 thou/uL (1.20-3.40); #Monocytes 0.3 thou/uL (0.11-0.59); %Basophils 0.2 % (0.0-1.0); %Eosinophils 0.9 % (0.0-10.0); %Lymphocytes 4.6 % (21.0-51.0); %Monocytes 3.9 % (0.0-10.0); %Neutrophils 90.5 % (42.0-75.0); Hemoglobin 10.6 g/dL (12.0-16.0); Mean Corpuscular HGB CONC 31.7 g/dL (32.0-36.0); Mean Corpuscular Hemoglobin 32.8 pg (27.0-31.0); Mean Platelet Volume 7.6 fL (7.4-10.4); Platelet Count 367 thou/uL (130-400); RBC Distribution Width 14.1 % (11.5-14.5); Red Blood Cell (RBC) Count 3.22 mill/uL (4.20-5.40); White Blood Cell (WBC) Count 8.8 thou/uL (4.8-10.8)
[2021-07-18] MEDS ORDERED: Lisinopril 5 MG TAB PO SCH (09:00)
[2021-07-18] MEDS: Aspirin Chewable 81 MG TAB PO SCH (09:04)
[2021-07-18] MEDS: Clopidogrel Bisulfate 75 MG TAB PO SCH (09:04)
[2021-07-18] MEDS: Enoxaparin Sodium 40 MG/0.4 ML SYRINGE SC SCH (09:05)
[2021-07-18] MEDS: Carvedilol 3.125 MG TAB PO SCH ×3 (09:05→21:10)
[2021-07-18] MEDS: Lisinopril 5 MG TAB PO SCH (09:35)
[2021-07-18] MEDS: Azithromycin 500 MG in Sodium Chloride 0.9% 250 ML 250 ML IVPB SCH (11:06)
[2021-07-18] MEDS: cefTRIAXone\\ROCEPHIN 2 GM in Sodium Chloride 0.9% 100 ML IVPB SCH (12:24)
[2021-07-18] MEDS: VANCOMYCIN 1.25 GM/250 ML BAG 1.25 GM in Premix Bag 1 BAG IVPB SCH (17:27)
[2021-07-18] MEDS: Donepezil HCl 5 MG TAB PO SCH (21:10)
[2021-07-18] MEDS: Atorvastatin Calcium 40 MG TAB PO SCH (21:10)
[2021-07-19] MEDS: methylPREDNISolone Sod Succ 40 MG VIAL IVP SCH ×3 (00:07→11:38)
[2021-07-19] MEDS: Ipratropium Bromide 2.5 ml Neb NEB SCH ×5 (03:32→18:04)
[2021-07-19] MEDS: Bisacodyl 5 MG TAB PO PRN (04:57)
[2021-07-19] MEDS: Sodium Chloride 0.45% 1,000 ML IV SCH ×2 (04:57→17:43)
[2021-07-19] MEDS: Levothyroxine Sodium 100 MCG TAB PO SCH (04:57)
[2021-07-19] MEDS ORDERED: Ipratropium Bromide 2.5 ml Neb NEB PRN (07:55)
[2021-07-19 08:56] LABS: Anion Gap 11 mmol/L (10-20); BUN (Urea Nitrogen) 14 mg/dL (9.8-20.1); Calc. Creatinine Clearance 92 mL/min (70-130); Calcium 8.1 mg/dL (7.8-10.44); Carbon Dioxide 28 mmol/L (23-31); Chloride 101 mmol/L (98-107); Glucose 143 mg/dL (83-110); Potassium 4.2 mmol/L (3.5-5.1); Sodium 136 mmol/L (136-145)
[2021-07-19 09:03] LABS: Hemoglobin 10.7 g/dL (12.0-16.0); Mean Corpuscular HGB CONC 32.4 g/dL (32.0-36.0); Mean Corpuscular Hemoglobin 32.8 pg (27.0-31.0); Red Blood Cell (RBC) Count 3.27 mill/uL (4.20-5.40)
[2021-07-19] MEDS: Lisinopril 5 MG TAB PO SCH ×2 (09:56→20:41)
[2021-07-19] MEDS: Carvedilol 3.125 MG TAB PO SCH ×3 (09:56→20:41)
[2021-07-19] MEDS: Enoxaparin Sodium 40 MG/0.4 ML SYRINGE SC SCH (09:56)
[2021-07-19] MEDS: Clopidogrel Bisulfate 75 MG TAB PO SCH (09:56)
[2021-07-19] MEDS: Aspirin Chewable 81 MG TAB PO SCH (09:56)
[2021-07-19] MEDS ORDERED: Iopamidol-370 76% 500 ML 1 ML ONE (10:41)
[2021-07-19] MEDS: Azithromycin 500 MG in Sodium Chloride 0.9% 250 ML 250 ML IVPB SCH (11:38)
[2021-07-19] MEDS: cefTRIAXone\\ROCEPHIN 2 GM in Sodium Chloride 0.9% 100 ML IVPB SCH (12:55)
[2021-07-19 13:39] LABS: Band 29 % (5-11); Lymphocytes 4 % (21-51); MDiff Complete? YES; Macrocytosis SLIGHT = 6-15 cells (100X) (0-5/hpf); Mean Platelet Volume 7.2 fL (7.4-10.4); Metamyelocyte 1 % (0-0); Monocytes 3 % (0-10); Myelocyte 1 % (0-0); Neutrophil 62 % (42-75); Ovalocytes SLIGHT = 2-5 cells (100X) (0-1/hpf); Platelet Count 401 thou/uL (130-400); Platelet Morphology Comment Appears Adequate; Polychromasia MODERATE = 3-4 cells (100X) (0-2/hpf); Target Cells SLIGHT = 2-5 cells (100X) (0-1/hpf); White Blood Cell (WBC) Count 13.5 thou/uL (4.8-10.8)
[2021-07-19 17:54] LABS: Vancomycin, Trough 5.4 ug/mL
[2021-07-19] MEDS ORDERED: Vancomycin HCl 1.25 GM in Sodium Chloride 0.9% 250 ML 250 ML IVPB SCH (18:00)
[2021-07-19] MEDS: Donepezil HCl 5 MG TAB PO SCH (20:40)
[2021-07-19] MEDS: Atorvastatin Calcium 40 MG TAB PO SCH (20:40)
[2021-07-20] MEDS: Sodium Chloride 0.45% 1,000 ML IV SCH (03:32)
[2021-07-20] MEDS ORDERED: Vancomycin 1 GM in Premix Bag 1 BAG IVPB SCH (06:00)
[2021-07-20] MEDS ORDERED: VANCOMYCIN 1.25 GM/250 ML BAG 1.25 GM in Premix Bag 1 BAG IVPB SCH (06:00)
[2021-07-20] MEDS: Ipratropium Bromide 2.5 ml Neb NEB SCH ×3 (06:20→18:01)
[2021-07-20] MEDS: Levothyroxine Sodium 100 MCG TAB PO SCH (06:21)
[2021-07-20] MEDS: Aspirin Chewable 81 MG TAB PO SCH (09:20)
[2021-07-20] MEDS: Lisinopril 5 MG TAB PO SCH ×2 (09:20→22:05)
[2021-07-20] MEDS: Enoxaparin Sodium 40 MG/0.4 ML SYRINGE SC SCH (09:20)
[2021-07-20] MEDS: Carvedilol 3.125 MG TAB PO SCH ×3 (09:20→22:04)
[2021-07-20] MEDS: Clopidogrel Bisulfate 75 MG TAB PO SCH (09:20)
[2021-07-20] MEDS: predniSONE 20 MG TAB PO SCH (09:20)
[2021-07-20 10:30] LABS: #Eosinphils 0.1 thou/uL (0.0-0.7); #Lymphocytes 1.5 thou/uL (1.20-3.40); #Monocytes 1.3 thou/uL (0.11-0.59); #Neutrophils 13.2 thou/uL (1.40-6.50); %Basophils 0.1 % (0.0-1.0); %Eosinophils 0.3 % (0.0-10.0); %Lymphocytes 9.2 % (21.0-51.0); %Monocytes 8.3 % (0.0-10.0); %Neutrophils 82.1 % (42.0-75.0); Hemoglobin 12.4 g/dL (12.0-16.0); Mean Corpuscular HGB CONC 32.2 g/dL (32.0-36.0); Mean Corpuscular Hemoglobin 32.6 pg (27.0-31.0); Mean Platelet Volume 7.2 fL (7.4-10.4); Platelet Count 466 thou/uL (130-400); RBC Distribution Width 14.1 % (11.5-14.5)
[2021-07-20 10:47] LABS: Anion Gap 14 mmol/L (10-20); BUN (Urea Nitrogen) 10 mg/dL (9.8-20.1); Calc. Creatinine Clearance 81 mL/min (70-130); Calcium 8.9 mg/dL (7.8-10.44); Carbon Dioxide 25 mmol/L (23-31); Chloride 101 mmol/L (98-107); Glucose 79 mg/dL (83-110); Sodium 136 mmol/L (136-145)
[2021-07-20] MEDS: cefTRIAXone\\ROCEPHIN 2 GM in Sodium Chloride 0.9% 100 ML IVPB SCH (11:01)
[2021-07-20 21:14] LABS: SARS-CoV-2 PCR by NAA Not Detected (NotDetected)
[2021-07-20] MEDS: Donepezil HCl 5 MG TAB PO SCH (22:04)
[2021-07-20] MEDS: Atorvastatin Calcium 40 MG TAB PO SCH (22:05)
[2021-07-20] MEDS: Bisacodyl 5 MG TAB PO PRN (22:08)
[2021-07-21] MEDS: Levothyroxine Sodium 100 MCG TAB PO SCH (05:50)
[2021-07-21 06:07] LABS: #Eosinphils 0.1 thou/uL (0.0-0.7); #Lymphocytes 1.3 thou/uL (1.20-3.40); #Monocytes 0.9 thou/uL (0.11-0.59); #Neutrophils 11.4 thou/uL (1.40-6.50); %Basophils 0.1 % (0.0-1.0); %Eosinophils 0.6 % (0.0-10.0); %Lymphocytes 9.2 % (21.0-51.0); %Monocytes 6.7 % (0.0-10.0); %Neutrophils 83.5 % (42.0-75.0); Hemoglobin 11.9 g/dL (12.0-16.0); Mean Corpuscular Hemoglobin 31.8 pg (27.0-31.0); Platelet Count 427 thou/uL (130-400); RBC Distribution Width 14.1 % (11.5-14.5); Red Blood Cell (RBC) Count 3.73 mill/uL (4.20-5.40); White Blood Cell (WBC) Count 13.7 thou/uL (4.8-10.8)
[2021-07-21 06:31] LABS: Anion Gap 11 mmol/L (10-20); BUN (Urea Nitrogen) 9 mg/dL (9.8-20.1); Calc. Creatinine Clearance 90 mL/min (70-130); Calcium 8.7 mg/dL (7.8-10.44); Carbon Dioxide 27 mmol/L (23-31); Chloride 104 mmol/L (98-107); Glucose 78 mg/dL (83-110); Potassium 3.9 mmol/L (3.5-5.1); Sodium 138 mmol/L (136-145)
[2021-07-21] MEDS: Ipratropium Bromide 2.5 ml Neb NEB SCH (07:46)
[2021-07-21] MEDS: Aspirin Chewable 81 MG TAB PO SCH (08:59)
[2021-07-21] MEDS: predniSONE 20 MG TAB PO SCH (08:59)
[2021-07-21] MEDS: Carvedilol 3.125 MG TAB PO SCH (09:00)
[2021-07-21] MEDS: Clopidogrel Bisulfate 75 MG TAB PO SCH (09:00)
[2021-07-21] MEDS: Lisinopril 5 MG TAB PO SCH (09:00)
[2021-07-21 11:57] VITALS: BP 145/84; TEMP 97.7
== END 2021-07-21 14:05 | DRG 196 ==
LOC: 2NO 10:03 → SURG B 07-19 15:18
PROVIDERS: ADMIT Internal Medicine; ATTEND Internal Medicine
DX: J84.9 Interstitial pulmonary disease, unspecified (principal); J96.21 Acute and chronic respiratory failure with hypoxia; I47.1 Supraventricular tachycardia; I50.22 Chronic systolic (congestive) heart failure; I42.9 Cardiomyopathy, unspecified; I25.10 Atherosclerotic heart disease of native coronary artery without angina pectoris; Z20.822 Contact with and (suspected) exposure to COVID-19; F17.210 Nicotine dependence, cigarettes, uncomplicated; E03.9 Hypothyroidism, unspecified; E78.5 Hyperlipidemia, unspecified; I73.9 Peripheral vascular disease, unspecified; F32.A Depression, unspecified; R07.89 Other chest pain; E78.00 Pure hypercholesterolemia, unspecified; K21.9 Gastro-esophageal reflux disease without esophagitis; J43.9 Emphysema, unspecified; Z95.1 Presence of aortocoronary bypass graft; Z95.5 Presence of coronary angioplasty implant and graft; Z91.041 Radiographic dye allergy status; Z88.0 Allergy status to penicillin; Z88.8 Allergy status to other drugs, medicaments and biological substances; Z91.09 Other allergy status, other than to drugs and biological substances; Z79.899 Other long term (current) drug therapy; Z79.890 Hormone replacement therapy; Z79.02 Long term (current) use of antithrombotics/antiplatelets; Z79.82 Long term (current) use of aspirin; Z79.51 Long term (current) use of inhaled steroids; Z90.49 Acquired absence of other specified parts of digestive tract; Z90.710 Acquired absence of both cervix and uterus; Z82.49 Family history of ischemic heart disease and other diseases of the circulatory system; Z80.1 Family history of malignant neoplasm of trachea, bronchus and lung; Z99.81 Dependence on supplemental oxygen; Z87.01 Personal history of pneumonia (recurrent)
CPT/HCPCS: 36415; 36416; 36600; 71250; 74177; 80048; 80202; 82553; 82805; 83605; 83735; 85025; 86769; 87040; 87070; 87077; 87149; 87186; 87205; 93005; 93010; 93306; J0153; J0456; J0696; J1650; J2920; J3370; J3490; J7050; J7512; Q0162; Q9967; U0002; U0003; U0005